=== PATIENT | male | born 1995 | race American Indian/Alaskan Native ===

== ENCOUNTER 2023-12-22 19:12 | Emergency (ER) | payer MEDICAID, OTHER ==
[2023-12-22] MEDS: Cyclobenzaprine 10 MG Tab PO ONE (19:54)
[2023-12-22] MEDS: Ibuprofen 600 MG Tab PO ONE (19:54)
== END 2023-12-22 20:59 | disposition home or self-care (01) ==
LOC: MW.ED 19:12
DX: S00.83XA Contusion of other part of head, initial encounter (principal); I10 Essential (primary) hypertension; E11.9 Type 2 diabetes mellitus without complications; V49.40XA Driver injured in collision with unspecified motor vehicles in traffic accident, initial encounter; Y92.410 Unspecified street and highway as the place of occurrence of the external cause
CPT/HCPCS: 70450; 72125; 99284; A9270; 99283